=== PATIENT | female | born 1945 | race Caucasian/White ===

== ENCOUNTER 2016-11-05 20:15 | Emergency (ER) | payer MEDICARE, OTHER ==
[~2016-11-05] VITALS: Ht 157.5 cm; Wt 139.0 kg
[~2016-11-05 20:15] MED LIST: ACET-1600 PO; ALPR1TAB6 PO; ATOR20TA9 PO; BENA10TA2 PO; BIFI4CAP PO; BUME1TAB21 PO; BUME2TAB PO; CHOL200026 PO; CLOP75TA22 PO; COCO1000 PO; DEXL60CA PO; LEVO88TA2 PO; MAGN400O4 PO; METH500T5 PO; POLY17PO5 PO; PREG100C PO; RANI150T4 PO; SODIUM CLORIDE PO; UBID100C11 PO
[2016-11-05] MEDS ORDERED: RIVA10TA PO (20:51)
[2016-11-05] MEDS ORDERED: LEVO100T PO (20:51)
[2016-11-05 21:15] LABS: ASPARTATE AMINO TRANSFERASE 17 U/L (15-37); BLOOD UREA NITROGEN 35 mg/dL (7-18)
[2016-11-05 21:20] LABS: IS PT STATUS REG ER OR PRE ER? YES
[2016-11-05 23:17] VITALS: BP 123/47
== END 2016-11-05 23:21 | disposition home or self-care (01) ==
LOC: ED 23:18
DX: I87.2 Venous insufficiency (chronic) (peripheral) (principal); N18.3 Chronic kidney disease, stage 3 (moderate); I12.9 Hypertensive chronic kidney disease with stage 1 through stage 4 chronic kidney disease, or unspecified chronic kidney disease; D64.9 Anemia, unspecified; E66.01 Morbid (severe) obesity due to excess calories; E03.9 Hypothyroidism, unspecified; Z86.73 Personal history of transient ischemic attack (TIA), and cerebral infarction without residual deficits; Z87.891 Personal history of nicotine dependence
CPT/HCPCS: 36415; 71010; 80053; 83880; 84484; 85025; 93005; 99285

== ENCOUNTER 2019-05-06 10:45 | Emergency (ER) | payer MEDICARE, OTHER ==
[~2019-05-06] VITALS: Ht 157.5 cm; Wt 136.8 kg
[~2019-05-06 10:45] MED LIST changes: +ACID1TAB7 PO; +ATOR20TA37 PO; -ATOR20TA9 PO; -BENA10TA2 PO; +BENA10TA6 PO; -BUME2TAB PO; +BUME2TAB3 PO; -CHOL200026 PO; +CHOL200059 PO; -CLOP75TA22 PO; +CLOP75TA52 PO; -DEXL60CA PO; +DEXL60CA2 PO; +LEVO100T PO; +LEVO137T2 PO; +LORA0.5T PO; -MAGN400O4 PO; +MAGN400O7 PO; +NITR100C PO; +PHEN20SP MM; +RIVA10TA2 PO; +SENN-52 PO; -UBID100C11 PO; +UBID100C41 PO
[2019-05-06 10:56] VITALS: BP 134/73
--- NOTE | 2019-05-06 11:13 | NUR ---
PT RESTING IN BED, ATTACHED TO MONITORS AND DRESSED IN A GOWN. DENIES ANY FURTHER NEEDS OR CONCERNS AT THIS TIME. CALL LIGHT IN REACH. ALL ALLERGIES UPDATED IN THE SYSTEM.
--- NOTE | 2019-05-06 12:31 | NUR ---
PT REQUIRES [facility] FOR TRANSPORTATION HOME. REQUESTING INCONTINENCE SUPPLIES BUT DENIES STAFF INVOLVEMENT. PT WOULD PREFER HER FAMILY/[facility]ARE[facility]ERS AT BEDSIDE COMPLETE CLEANING AND PERSONAL CARE. PT AND FAMILY PROVIDED WITH ALL NECESSARY SUPPLIES, CALL LIGHT IN REACH, VERBALLY REMINDED TO REQUEST ASSISTANCE IF NEEDED. VERBALIZE UNDERSTANDING.
--- NOTE | 2019-05-06 13:17 | NUR ---
PT CLEANED, DRESSED, IV REMOVED, REPOSITIONED IN BED FOR COMFORT. PT AND FAMILY AT BEDSIDE UPDATED ON TIME OF [facility] ARRIVAL. VERBALIZE UNDERSTANDING. DENIES ANY FURTHER NEEDS OR CONCERNS AT THIS TIME, CALL LIGHT IN REACH.
== END 2019-05-06 13:43 | disposition home or self-care (01) ==
LOC: ED 11:25
DX: S83.92XA Sprain of unspecified site of left knee, initial encounter (principal); I10 Essential (primary) hypertension; Z86.73 Personal history of transient ischemic attack (TIA), and cerebral infarction without residual deficits; Z90.89 Acquired absence of other organs; Z90.710 Acquired absence of both cervix and uterus; X58.XXXA Exposure to other specified factors, initial encounter; Y93.89 Activity, other specified; Y92.098 Other place in other non-institutional residence as the place of occurrence of the external cause; Y99.8 Other external cause status
CPT/HCPCS: 99283

== ENCOUNTER 2019-05-14 09:59 | Inpatient (IN) | payer MEDICARE, OTHER ==
[~2019-05-14] VITALS: Ht 157.5 cm; Wt 135.8 kg
[2019-05-14] MEDS ORDERED: SODIUM CHLORIDE FLUSH 10ML SYR IVF ONE (10:30)
[2019-05-14 10:47] LABS: BASOPHILS # (AUTO) 0.08 x10^3/uL (0-0.1); BASOPHILS % (AUTO) 1 % (0-1); EOSINOPHILS # (AUTO) 0.08 x10^3/uL (0-0.4); EOSINOPHILS % (AUTO) 1 % (1-7); LYMPHOCYTES # (AUTO) 0.67 x10^3/uL (1-3.4); LYMPHOCYTES % (AUTO) 5 % (22-44); MD NO; MEAN CORPUSCULAR HEMOGLOBIN 27.2 pg (27.0-34.8); MEAN CORPUSCULAR HGB CONC 32.2 g/dL (32.4-35.8); MEAN CORPUSCULAR VOLUME 84.4 fL (80-100); MONOCYTES # (AUTO) 1.02 x10^3/uL (0.2-0.8); MONOCYTES % (AUTO) 7 % (2-9); NEUTROPHILS # (AUTO) 13.12 x10^3/uL (1.8-6.8); NEUTROPHILS % (AUTO) 88 % (42-75); PLATELET COUNT 280 x10^3/uL (130-400); RED BLOOD COUNT 4.47 x10^6/uL (3.82-5.3); RED CELL DISTRIBUTION WIDTH 17.1 % (9.6-15.2)
[2019-05-14 11:00] LABS: ALANINE AMINOTRANSFERASE 22 U/L (12-78); ALBUMIN 2.8 g/dL (3.4-5.0); ANION GAP 9 mmol/L (5-15); CALCIUM 8.7 mg/dL (8.5-10.1); CHLORIDE 100 mmol/L (98-107); CREATININE 1.95 mg/dL (0.55-1.02)
[2019-05-14 11:04] LABS: ALKALINE PHOSPHATASE 119 U/L (45-117); TOTAL PROTEIN 7.9 g/dL (6.4-8.2)
[2019-05-14] MEDS ORDERED: CEFTRIAXONE PMX 2GM/50ML 50 ML IV SCH ×2 (11:30→12:30)
[2019-05-14] MEDS ORDERED: AZITHROMYCIN 500 MG in SODIUM CHLORIDE 0.9% 250 ML IV ONE (11:30)
--- NOTE | 2019-05-14 11:34 | NUR ---
PT STRAIGHT CATHED WITH ASSISTX3, PT POSITIONED FOR COMFORT. FA,JOSHUA AT BEDSIDE. PTS FAMILY UPDATED
[2019-05-14 11:48] LABS: MICROSCOPIC INDICATED
[2019-05-14] MEDS ORDERED: CEFTRIAXONE PMX 2GM/50ML 50 ML ONE (11:48)
[2019-05-14] MEDS ORDERED: SODIUM CHLORIDE 0.9% 1,000 ML IV ONE (12:00)
--- NOTE | 2019-05-14 12:00 | NUR ---
IV ABX STARTED. BC DRAWN PRIOR
--- NOTE | 2019-05-14 12:01 | NUR ---
O2 CHANGED TO OXY MASK AT 8L. SATS 96% 10 MIN AFTER CHANGE
[2019-05-14] MEDS ORDERED: SODIUM CHLORIDE 0.9% 1,000 ML IV SCH (12:04)
[2019-05-14 12:15] LABS: CULTURE INDICATED? YES
[2019-05-14] MEDS ORDERED: hydrALAzine 20 MG/ML, 1ML IVPush PRN (12:30)
[2019-05-14] MEDS ORDERED: POTASSIUM CHLORIDE 40 MEQ in SODIUM CHLORIDE 0.9% 500 ML IV ONE ×2 (12:30→17:30)
[2019-05-14] MEDS ORDERED: LABETALOL 5MG/ML, 20ML IVPush PRN (12:30)
[2019-05-14 12:31] LABS: TROPONIN I < 0.015 ng/mL (0.000-0.045)
--- NOTE | 2019-05-14 13:04 | NUR ---
REPORT GIVEN TO KAT VALDERRAMA 4TH FLOOR SUP
--- NOTE | 2019-05-14 13:15 | NUR ---
REPORT TO TELE 2 RN. PT AWARE O FPENDING TRANSPORT
[2019-05-14] MEDS: GUAIFENESIN 200 MG TABLET PO SCH ×3 (14:08→20:32)
[2019-05-14] MEDS: HEPARIN 5,000 UNITS/ML, 1ML SQ SCH ×2 (14:09→21:57)
[2019-05-14 14:18] VITALS: BP 158/77
[2019-05-14] MEDS: DOXYCYCLINE 100 MG in DEXTROSE 5% 250 ML IV SCH (14:30)
[2019-05-14 18:11] LABS: TROPONIN I < 0.015 ng/mL (0.000-0.045)
--- NOTE | 2019-05-14 18:26 | NUR ---
NPO, FREQUENT ORAL CARE WITH SUCTION, [employer] MA[employer]GER PLACED SWALLOW PRECAUTION SIGN AT HOB Addendum: 05/14/19 at 1827 by Shawna GROSS Amended: Links added.
[2019-05-14 18:57] LABS: RAPID INFLUENZA A Negative (Negative); RAPID INFLUENZA B Negative (Negative)
[2019-05-14 19:14] VITALS: BP 140/95
[2019-05-14] MEDS: PREGABALIN 25 MG CAPSULE PO SCH (20:32)
[2019-05-14] MEDS: FAMOTIDINE 10 MG TAB PO SCH (20:32)
[2019-05-14] MEDS: MEROPENEM 1 GM in SODIUM CHLORIDE 0.9% 100 ML IV SCH (20:37)
[2019-05-14] MEDS ORDERED: ACETAMINOPHEN 650 MG SUPP ONE (20:53)
[2019-05-14] MEDS ORDERED: DOXYCYCLINE 100MG TABLET PO SCH (21:00)
[2019-05-14] MEDS ORDERED: ACETAMINOPHEN 650 MG SUPP PR PRN (21:00)
[2019-05-14] MEDS: LINEZOLID PMX 600MG/300ML 300 ML IV SCH (21:57)
[2019-05-15] MEDS: DOXYCYCLINE 100 MG in DEXTROSE 5% 250 ML IV SCH ×2 (02:48→14:22)
[2019-05-15] MEDS: MEROPENEM 1 GM in SODIUM CHLORIDE 0.9% 100 ML IV SCH ×3 (03:50→21:34)
[2019-05-15] MEDS: GUAIFENESIN 200 MG TABLET PO SCH ×4 (04:00→21:57)
[2019-05-15] MEDS: LEVOTHYROXINE 137 MCG TABLET PO SCH ×2 (04:00→12:22)
[2019-05-15 04:10] VITALS: BP 133/66
[2019-05-15 05:50] LABS: MEAN CORPUSCULAR HEMOGLOBIN 27.1 pg (27.0-34.8); MEAN CORPUSCULAR HGB CONC 32.3 g/dL (32.4-35.8); MEAN CORPUSCULAR VOLUME 84.1 fL (80-100); MEAN PLATELET VOLUME 10.6 fL (7.4-10.4); PLATELET COUNT 235 x10^3/uL (130-400); RED BLOOD COUNT 4.01 x10^6/uL (3.82-5.3); RED CELL DISTRIBUTION WIDTH 17.2 % (9.6-15.2)
[2019-05-15 05:55] LABS: CHLORIDE 103 mmol/L (98-107)
[2019-05-15] MEDS: HEPARIN 5,000 UNITS/ML, 1ML SQ SCH ×3 (06:05→22:15)
[2019-05-15 06:12] LABS: ALANINE AMINOTRANSFERASE 17 U/L (12-78); ALBUMIN 2.3 g/dL (3.4-5.0); ALKALINE PHOSPHATASE 103 U/L (45-117); ANION GAP 9 mmol/L (5-15); BILIRUBIN,TOTAL 0.8 mg/dL (0.2-1.0); CALCIUM 8.3 mg/dL (8.5-10.1); CREATININE 1.83 mg/dL (0.55-1.02); TOTAL PROTEIN 6.7 g/dL (6.4-8.2)
[2019-05-15 06:51] LABS: MD YES
[2019-05-15 06:53] LABS: ANISOCYTOSIS 1+; BAND#(MANUAL) 1.91 x10^3/uL; BANDS%(MANUAL) 11 % (0-7); LYMPH#(MANUAL) 0.52 x10^3/uL (1-3.4); LYMPHS% (MANUAL) 3 % (22-44); MONOS#(MANUAL) 1.22 x10^3/uL (0.3-2.7); MONOS% (MANUAL) 7 % (2-9); SEG#(MANUAL) 13.75 x10^3/uL (1.8-6.8); SEGS% (MANUAL) 79 % (42-75)
[2019-05-15 06:54] LABS: <PLATELET ESTIMATE> ADEQUATE; <PLT MORPHOLOGY> NORMAL PLT MORPH; POLYCHROMASIA 1+
[2019-05-15 06:55] VITALS: BP 121/71
[2019-05-15 06:55] LABS: LARGE PLATELETS 1+
[2019-05-15] MEDS: POTASSIUM CHLORIDE 20 MEQ TAB.ER.PRT PO ONE ×2 (09:00→12:23)
[2019-05-15] MEDS: PREGABALIN 25 MG CAPSULE PO SCH ×3 (09:00→21:56)
[2019-05-15] MEDS: CHOLECALCIFEROL 1,000 UNIT TABLET PO SCH (09:00)
[2019-05-15] MEDS: POTASSIUM CHLORIDE 40 MEQ in SODIUM CHLORIDE 0.9% 500 ML IV ONE ×2 (09:16→10:11)
[2019-05-15] MEDS: LINEZOLID PMX 600MG/300ML 300 ML IV SCH ×2 (09:22→22:14)
[2019-05-15] MEDS ORDERED: BUMETANIDE 1 MG TABLET PO SCH (10:30)
[2019-05-15 11:21] VITALS: BP 130/73
[2019-05-15] MEDS: ACETAMINOPHEN 325 MG TABLET PO PRN ×2 (14:23→21:57)
[2019-05-15 20:21] VITALS: BP 151/82
[2019-05-15] MEDS ORDERED: SENNA/DOCUSATE TABLET PO SCH (21:00)
[2019-05-15] MEDS: FAMOTIDINE 10 MG TAB PO SCH (21:00)
[2019-05-15] MEDS: DOCUSATE 50 MG/5 ML, 10ML UDC PO SCH (22:00)
[2019-05-15] MEDS: SENNOSIDES 8.8 MG/5 ML ORAL SOL PO SCH (22:15)
[2019-05-16 00:58] VITALS: BP 133/68
[2019-05-16] MEDS ORDERED: BENZONATATE 100 MG CAPSULE PO ONE (01:30)
[2019-05-16] MEDS: DOXYCYCLINE 100 MG in DEXTROSE 5% 250 ML IV SCH ×2 (01:38→15:45)
[2019-05-16] MEDS: LEVOTHYROXINE 137 MCG TABLET PO SCH (05:16)
[2019-05-16] MEDS: HEPARIN 5,000 UNITS/ML, 1ML SQ SCH ×3 (05:16→22:54)
[2019-05-16] MEDS: GUAIFENESIN 200 MG TABLET PO SCH ×4 (05:16→20:11)
[2019-05-16] MEDS: MEROPENEM 1 GM in SODIUM CHLORIDE 0.9% 100 ML IV SCH ×2 (05:17→13:34)
[2019-05-16 07:03] VITALS: BP 123/73
[2019-05-16] MEDS: BUMETANIDE 1 MG TABLET PO SCH ×3 (09:00→20:07)
[2019-05-16] MEDS: DOCUSATE 50 MG/5 ML, 10ML UDC PO SCH ×2 (09:00→20:08)
[2019-05-16 10:16] LABS: MEAN CORPUSCULAR HEMOGLOBIN 26.9 pg (27.0-34.8); MEAN CORPUSCULAR VOLUME 83.9 fL (80-100); MEAN PLATELET VOLUME 10.8 fL (7.4-10.4); PLATELET COUNT 279 x10^3/uL (130-400); RED BLOOD COUNT 3.79 x10^6/uL (3.82-5.3); RED CELL DISTRIBUTION WIDTH 17.4 % (9.6-15.2)
[2019-05-16 10:20] LABS: ALANINE AMINOTRANSFERASE 17 U/L (12-78); ALBUMIN 2.3 g/dL (3.4-5.0); ANION GAP 5 mmol/L (5-15); CALCIUM 8.8 mg/dL (8.5-10.1); CHLORIDE 102 mmol/L (98-107)
[2019-05-16 10:23] LABS: ALKALINE PHOSPHATASE 101 U/L (45-117); BILIRUBIN,TOTAL 0.6 mg/dL (0.2-1.0); CREATININE 1.67 mg/dL (0.55-1.02); TOTAL PROTEIN 6.8 g/dL (6.4-8.2)
[2019-05-16 10:36] LABS: BASOPHILS # (AUTO) 0.07 x10^3/uL (0-0.1); BASOPHILS % (AUTO) 1 % (0-1); EOSINOPHILS % (AUTO) 1 % (1-7); LYMPHOCYTES # (AUTO) 0.81 x10^3/uL (1-3.4); LYMPHOCYTES % (AUTO) 5 % (22-44); MD SCAN; MONOCYTES # (AUTO) 0.93 x10^3/uL (0.2-0.8); MONOCYTES % (AUTO) 6 % (2-9); NEUTROPHILS # (AUTO) 13.04 x10^3/uL (1.8-6.8); NEUTROPHILS % (AUTO) 87 % (42-75)
[2019-05-16] MEDS: LINEZOLID PMX 600MG/300ML 300 ML IV SCH ×2 (10:38→21:42)
[2019-05-16] MEDS: CHOLECALCIFEROL 1,000 UNIT TABLET PO SCH (10:39)
[2019-05-16] MEDS: POLYETHYLENE GLYCOL 17 GM PACKET PO SCH (10:40)
[2019-05-16] MEDS: PREGABALIN 25 MG CAPSULE PO SCH ×2 (10:40→20:10)
[2019-05-16] MEDS: POTASSIUM CHLORIDE 20 MEQ TAB.ER.PRT PO SCH ×2 (10:40→20:06)
[2019-05-16] MEDS: SENNOSIDES 8.8 MG/5 ML ORAL SOL PO SCH ×2 (10:41→20:17)
[2019-05-16] MEDS: ACETAMINOPHEN 325 MG TABLET PO PRN (10:41)
[2019-05-16 13:30] VITALS: BP 111/62
[2019-05-16 19:37] VITALS: BP 148/80
[2019-05-16] MEDS: FAMOTIDINE 10 MG TAB PO SCH (20:14)
[2019-05-17 00:50] VITALS: BP 117/69
[2019-05-17] MEDS: MEROPENEM 1 GM in SODIUM CHLORIDE 0.9% 100 ML IV SCH ×2 (01:08→13:16)
[2019-05-17] MEDS: DOXYCYCLINE 100 MG in DEXTROSE 5% 250 ML IV SCH ×2 (02:34→14:23)
[2019-05-17] MEDS: LEVOTHYROXINE 137 MCG TABLET PO SCH (05:42)
[2019-05-17] MEDS: GUAIFENESIN 200 MG TABLET PO SCH ×4 (05:43→20:37)
[2019-05-17] MEDS: HEPARIN 5,000 UNITS/ML, 1ML SQ SCH ×3 (05:45→22:12)
[2019-05-17 05:48] LABS: BASOPHILS # (AUTO) 0.06 x10^3/uL (0-0.1); BASOPHILS % (AUTO) 1 % (0-1); EOSINOPHILS % (AUTO) 3 % (1-7); LYMPHOCYTES # (AUTO) 0.98 x10^3/uL (1-3.4); LYMPHOCYTES % (AUTO) 10 % (22-44); MD NO; MEAN CORPUSCULAR HEMOGLOBIN 27.1 pg (27.0-34.8); MEAN CORPUSCULAR HGB CONC 32.2 g/dL (32.4-35.8); MEAN PLATELET VOLUME 10.3 fL (7.4-10.4); MONOCYTES # (AUTO) 0.92 x10^3/uL (0.2-0.8); MONOCYTES % (AUTO) 9 % (2-9); NEUTROPHILS # (AUTO) 7.95 x10^3/uL (1.8-6.8); NEUTROPHILS % (AUTO) 78 % (42-75); PLATELET COUNT 278 x10^3/uL (130-400)
[2019-05-17 05:48] LABS: ALBUMIN 2.2 g/dL (3.4-5.0); ANION GAP 6 mmol/L (5-15); CALCIUM 8.7 mg/dL (8.5-10.1); CHLORIDE 101 mmol/L (98-107)
[2019-05-17 05:52] LABS: ALANINE AMINOTRANSFERASE 15 U/L (12-78); ALKALINE PHOSPHATASE 99 U/L (45-117); BILIRUBIN,TOTAL 0.5 mg/dL (0.2-1.0); CREATININE 1.55 mg/dL (0.55-1.02); TOTAL PROTEIN 6.5 g/dL (6.4-8.2)
[2019-05-17 07:41] VITALS: BP 114/68
[2019-05-17] MEDS: POTASSIUM CHLORIDE 20 MEQ TAB.ER.PRT PO SCH ×2 (08:34→20:40)
[2019-05-17] MEDS: DOCUSATE 50 MG/5 ML, 10ML UDC PO SCH ×3 (08:34→20:54)
[2019-05-17] MEDS: POLYETHYLENE GLYCOL 17 GM PACKET PO SCH (08:34)
[2019-05-17] MEDS: SENNOSIDES 8.8 MG/5 ML ORAL SOL PO SCH ×2 (08:34→20:39)
[2019-05-17] MEDS: BUMETANIDE 1 MG TABLET PO SCH ×2 (08:35→20:32)
[2019-05-17] MEDS: PREGABALIN 25 MG CAPSULE PO SCH ×2 (08:35→20:37)
[2019-05-17] MEDS: CHOLECALCIFEROL 1,000 UNIT TABLET PO SCH (08:35)
[2019-05-17 12:45] VITALS: BP 110/61
[2019-05-17 18:33] VITALS: BP 138/76
[2019-05-17] MEDS: FAMOTIDINE 10 MG TAB PO SCH (20:19)
[2019-05-18 00:21] VITALS: BP 107/64
[2019-05-18] MEDS: MEROPENEM 1 GM in SODIUM CHLORIDE 0.9% 100 ML IV SCH (00:50)
[2019-05-18] MEDS: DOXYCYCLINE 100 MG in DEXTROSE 5% 250 ML IV SCH (01:58)
[2019-05-18] MEDS: GUAIFENESIN 200 MG TABLET PO SCH ×4 (05:49→20:41)
[2019-05-18] MEDS: HEPARIN 5,000 UNITS/ML, 1ML SQ SCH ×3 (05:49→21:47)
[2019-05-18] MEDS: LEVOTHYROXINE 137 MCG TABLET PO SCH (05:49)
[2019-05-18 06:52] LABS: MEAN CORPUSCULAR HEMOGLOBIN 26.8 pg (27.0-34.8); MEAN CORPUSCULAR HGB CONC 31.9 g/dL (32.4-35.8); MEAN CORPUSCULAR VOLUME 84.1 fL (80-100); PLATELET COUNT 301 x10^3/uL (130-400); RED BLOOD COUNT 3.72 x10^6/uL (3.82-5.3); RED CELL DISTRIBUTION WIDTH 16.6 % (9.6-15.2)
[2019-05-18 06:57] LABS: ALANINE AMINOTRANSFERASE 14 U/L (12-78); ALBUMIN 2.1 g/dL (3.4-5.0); ANION GAP 7 mmol/L (5-15); CALCIUM 8.9 mg/dL (8.5-10.1); CHLORIDE 101 mmol/L (98-107); CREATININE 1.38 mg/dL (0.55-1.02)
[2019-05-18 07:00] LABS: ALKALINE PHOSPHATASE 100 U/L (45-117); BILIRUBIN,TOTAL 0.5 mg/dL (0.2-1.0); TOTAL PROTEIN 6.4 g/dL (6.4-8.2)
[2019-05-18 07:17] LABS: BASOPHILS % (AUTO) 0 % (0-1); EOSINOPHILS # (AUTO) 0.25 x10^3/uL (0-0.4); EOSINOPHILS % (AUTO) 3 % (1-7); LYMPHOCYTES # (AUTO) 0.97 x10^3/uL (1-3.4); LYMPHOCYTES % (AUTO) 13 % (22-44); MD SCAN; MONOCYTES # (AUTO) 0.55 x10^3/uL (0.2-0.8); MONOCYTES % (AUTO) 8 % (2-9); NEUTROPHILS # (AUTO) 5.57 x10^3/uL (1.8-6.8); NEUTROPHILS % (AUTO) 76 % (42-75)
[2019-05-18 08:23] VITALS: BP 103/61
[2019-05-18] MEDS: BUMETANIDE 1 MG TABLET PO SCH ×3 (08:34→20:40)
[2019-05-18] MEDS: PREGABALIN 25 MG CAPSULE PO SCH ×3 (08:34→20:40)
[2019-05-18] MEDS: SENNOSIDES 8.8 MG/5 ML ORAL SOL PO SCH ×2 (08:34→20:48)
[2019-05-18] MEDS: POLYETHYLENE GLYCOL 17 GM PACKET PO SCH (08:35)
[2019-05-18] MEDS: POTASSIUM CHLORIDE 20 MEQ TAB.ER.PRT PO SCH ×3 (08:35→20:40)
[2019-05-18] MEDS: DOCUSATE 50 MG/5 ML, 10ML UDC PO SCH (08:35)
[2019-05-18] MEDS: CHOLECALCIFEROL 1,000 UNIT TABLET PO SCH (08:35)
[2019-05-18] MEDS: CEFDINIR 300 MG CAPSULE PO SCH ×2 (10:30→20:41)
[2019-05-18] MEDS: DOCUSATE 100 MG CAPSULE PO SCH ×2 (10:30→21:47)
[2019-05-18] MEDS: DOXYCYCLINE 100MG TABLET PO SCH ×2 (11:09→20:41)
[2019-05-18] MEDS ORDERED: BUME1TAB21 PO (12:38)
[2019-05-18] MEDS ORDERED: POTA20TA6 PO (12:38)
[2019-05-18] MEDS ORDERED: CEFD300C37 PO (12:38)
[2019-05-18] MEDS ORDERED: GUAI200T37 PO (12:38)
[2019-05-18] MEDS ORDERED: DOXY100T PO (12:38)
[2019-05-18] MEDS ORDERED: ALBUTEROL SULFATE 2.5 MG/3 ML ONE (13:22)
[2019-05-18 14:12] VITALS: BP 103/62
[2019-05-18 18:35] VITALS: BP 129/75
[2019-05-18] MEDS: FAMOTIDINE 10 MG TAB PO SCH (20:40)
[2019-05-19 00:08] VITALS: BP 121/69
[2019-05-19] MEDS: HEPARIN 5,000 UNITS/ML, 1ML SQ SCH ×3 (05:32→22:08)
[2019-05-19] MEDS: LEVOTHYROXINE 137 MCG TABLET PO SCH (05:32)
[2019-05-19] MEDS: GUAIFENESIN 200 MG TABLET PO SCH ×4 (05:32→20:12)
[2019-05-19 08:46] VITALS: BP 119/73
[2019-05-19] MEDS: SENNOSIDES 8.8 MG/5 ML ORAL SOL PO SCH ×2 (09:00→19:30)
[2019-05-19] MEDS: DOCUSATE 100 MG CAPSULE PO SCH ×2 (09:00→19:30)
[2019-05-19] MEDS: POLYETHYLENE GLYCOL 17 GM PACKET PO SCH (09:00)
[2019-05-19] MEDS: BUMETANIDE 1 MG TABLET PO SCH ×2 (09:28→20:13)
[2019-05-19] MEDS: CHOLECALCIFEROL 1,000 UNIT TABLET PO SCH (09:28)
[2019-05-19] MEDS: CEFDINIR 300 MG CAPSULE PO SCH ×2 (09:28→20:13)
[2019-05-19] MEDS: PREGABALIN 25 MG CAPSULE PO SCH ×2 (09:28→20:12)
[2019-05-19] MEDS: DOXYCYCLINE 100MG TABLET PO SCH ×2 (09:29→20:13)
[2019-05-19] MEDS: POTASSIUM CHLORIDE 20 MEQ TAB.ER.PRT PO SCH ×2 (09:29→20:13)
[2019-05-19 13:44] VITALS: BP 115/70
[2019-05-19] MEDS: FAMOTIDINE 10 MG TAB PO SCH (20:13)
[2019-05-19 20:44] VITALS: BP 145/76
[2019-05-20 03:17] VITALS: BP 112/65
[2019-05-20] MEDS: HEPARIN 5,000 UNITS/ML, 1ML SQ SCH ×2 (05:41→14:10)
[2019-05-20] MEDS: LEVOTHYROXINE 137 MCG TABLET PO SCH (05:41)
[2019-05-20] MEDS: GUAIFENESIN 200 MG TABLET PO SCH ×3 (05:41→16:46)
[2019-05-20 06:39] LABS: MEAN CORPUSCULAR HEMOGLOBIN 27.2 pg (27.0-34.8); MEAN CORPUSCULAR HGB CONC 32.4 g/dL (32.4-35.8); MEAN PLATELET VOLUME 9.6 fL (7.4-10.4); PLATELET COUNT 342 x10^3/uL (130-400); RED CELL DISTRIBUTION WIDTH 16.4 % (9.6-15.2)
[2019-05-20 06:45] LABS: ALANINE AMINOTRANSFERASE 13 U/L (12-78); ALBUMIN 2.4 g/dL (3.4-5.0); ANION GAP 9 mmol/L (5-15); CHLORIDE 96 mmol/L (98-107); CREATININE 1.31 mg/dL (0.55-1.02)
[2019-05-20 06:47] LABS: ALKALINE PHOSPHATASE 101 U/L (45-117); BILIRUBIN,TOTAL 0.7 mg/dL (0.2-1.0); TOTAL PROTEIN 6.7 g/dL (6.4-8.2)
[2019-05-20 06:55] LABS: BASOPHILS # (AUTO) 0.09 x10^3/uL (0-0.1); BASOPHILS % (AUTO) 1 % (0-1); EOSINOPHILS % (AUTO) 5 % (1-7); LYMPHOCYTES # (AUTO) 1.08 x10^3/uL (1-3.4); LYMPHOCYTES % (AUTO) 17 % (22-44); MD SCAN; MONOCYTES # (AUTO) 0.78 x10^3/uL (0.2-0.8); MONOCYTES % (AUTO) 12 % (2-9); NEUTROPHILS # (AUTO) 4.17 x10^3/uL (1.8-6.8); NEUTROPHILS % (AUTO) 65 % (42-75)
[2019-05-20 07:57] VITALS: BP 113/70
[2019-05-20] MEDS: DOCUSATE 100 MG CAPSULE PO SCH (08:03)
[2019-05-20] MEDS: SENNOSIDES 8.8 MG/5 ML ORAL SOL PO SCH (08:04)
[2019-05-20] MEDS: POLYETHYLENE GLYCOL 17 GM PACKET PO SCH (08:04)
[2019-05-20] MEDS: PREGABALIN 25 MG CAPSULE PO SCH (08:08)
[2019-05-20] MEDS: CHOLECALCIFEROL 1,000 UNIT TABLET PO SCH (08:08)
[2019-05-20] MEDS: DOXYCYCLINE 100MG TABLET PO SCH (08:08)
[2019-05-20] MEDS: BUMETANIDE 1 MG TABLET PO SCH (08:08)
[2019-05-20] MEDS: CEFDINIR 300 MG CAPSULE PO SCH (08:08)
[2019-05-20] MEDS: POTASSIUM CHLORIDE 20 MEQ TAB.ER.PRT PO SCH (08:08)
[2019-05-20 12:58] VITALS: BP 118/75
== END 2019-05-20 18:16 | DRG 871 ==
LOC: ED 10:52 → EDIP 12:08 → 4WST 13:36
PROVIDERS: ADMIT Internal Medicine; ATTEND Internal Medicine
PROC: 0T9B70Z Drainage of Bladder with Drainage Device, Via Natural or Artificial Opening (ICD-10-PCS; principal; 2019-05-14)
DX: A41.9 Sepsis, unspecified organism (principal); J18.9 Pneumonia, unspecified organism; J96.21 Acute and chronic respiratory failure with hypoxia; E66.2 Morbid (severe) obesity with alveolar hypoventilation; Z68.43 Body mass index [BMI] 50.0-59.9, adult; E87.2 Acidosis; I13.0 Hypertensive heart and chronic kidney disease with heart failure and stage 1 through stage 4 chronic kidney disease, or unspecified chronic kidney disease; J45.901 Unspecified asthma with (acute) exacerbation; N18.4 Chronic kidney disease, stage 4 (severe); N39.0 Urinary tract infection, site not specified; Z88.8 Allergy status to other drugs, medicaments and biological substances; Z88.6 Allergy status to analgesic agent; Z88.0 Allergy status to penicillin; Z91.013 Allergy to seafood; B96.20 Unspecified Escherichia coli [E. coli] as the cause of diseases classified elsewhere; E83.51 Hypocalcemia; E87.6 Hypokalemia; I27.20 Pulmonary hypertension, unspecified; I50.9 Heart failure, unspecified; I87.2 Venous insufficiency (chronic) (peripheral); K58.0 Irritable bowel syndrome with diarrhea; M79.7 Fibromyalgia; Z66 Do not resuscitate; Z80.49 Family history of malignant neoplasm of other genital organs; Z86.73 Personal history of transient ischemic attack (TIA), and cerebral infarction without residual deficits; Z87.891 Personal history of nicotine dependence; Z90.710 Acquired absence of both cervix and uterus
CPT/HCPCS: 36415; 36600; 71045; 74230; 80053; 81001; 82803; 83605; 83880; 84145; 84443; 84484; 85025; 87040; 87077; 87081; 87086; 87186; 87400; 87880; 93005; 96365; 96375; G0378; J0456; J0696; J1644; J2020; J2185; J3480; J7060; J7030; J7040; J7050; Q0177